=== PATIENT | female | born 1990 | race Two or more races ===

== ENCOUNTER 2021-10-18 14:38 | Emergency (ER) | payer MEDICAID, OTHER ==
[~2021-10-18] VITALS: Ht 154.9 cm; Wt 61.2 kg
[2021-10-18 16:21] VITALS: BP 119/60
[2021-10-18] MEDS ORDERED: PENICILLIN G BENZ 1200000 UNITS/2 ML SYRG IM ONE (16:30)
[2021-10-18] MEDS ORDERED: cefTRIAXone SOD 500 MG VL IM ONE (16:30)
== END 2021-10-18 16:51 | disposition home or self-care (01) ==
LOC: ER 14:38
DX: O98.212 Gonorrhea complicating pregnancy, second trimester (principal); Z3A.16 16 weeks gestation of pregnancy; Z76.0 Encounter for issue of repeat prescription
CPT/HCPCS: 96372; 99283; J0696

== ENCOUNTER 2022-03-22 08:22 | Inpatient (IN) | payer MEDICAID ==
[~2022-03-22] VITALS: Ht 154.9 cm; Wt 70.3 kg
[2022-03-22 14:41] LABS: Basophils # (auto) 0 10 ^3/uL (0-0.2); Basophils % (auto) 0.3 % (0.0-2.0); Eosinophils # (auto) 0 10 ^3/uL (0-0.8); Eosinophils % (auto) 0.6 % (0.0-7.0); Hematocrit 33.8 % (36.0-46.0); Lymphocytes # (auto) 1.6 10 ^3/uL (0.4-5.4); Mean Corpuscular Hemoglobin 27.5 pg (28.0-32.0); Mean Corpuscular Hgb Conc. 32.4 g/dL (32.0-36.0); Mean Corpuscular Volume 84.7 fL (80.0-100.0); Monocytes # (auto) 0.5 10 ^3/uL (0-1.3); Neutrophils # (auto) 6.3 10 ^3/uL (1.6-8.6); Neutrophils % (auto) 74.1 % (37.0-80.0); Red Blood Cells 3.99 10^6/uL (4.0-5.20); Red Cell Distribution Width 14.4 % (11.8-14.3); White Blood Cell 8.5 10^3/uL (4.4-10.8)
[2022-03-22 14:44] LABS: Albumin 2.5 g/dL (3.4-5.0); Calcium 8.5 mg/dL (8.5-10.1); Potassium 3.8 mmol/L (3.5-5.1)
[2022-03-22 14:52] LABS: BUN/Creatinine Ratio 19.5; Bilirubin, Total 0.6 mg/dL (0.2-1.0); Total Protein 6.8 g/dL (6.4-8.2)
[2022-03-22 14:56] LABS: Urine Bacteria NONE SEEN /hpf (None Seen); Urine Blood Negative /uL (Negative); Urine Specific Gravity 1.016 (1.001-1.035); Urine WBC 42 /hpf (0 - 5)
[2022-03-22 15:04] LABS: INR 0.91 (0.9-1.15); Partial Thromboplastin Time 31.3 sec (24.6-33.4)
[2022-03-23] VITALS (16 sets, daily range): BP systolic 90–115; BP diastolic 52–76
[2022-03-23] MEDS ORDERED: SODIUM CHLORIDE 0.9% 1,000 ML IV ONE ×2 (05:15)
[2022-03-23] MEDS ORDERED: CLINDAMYCIN 900MG IV 50 ML IV ONE (05:15)
[2022-03-23] MEDS ORDERED: PREN-129 OR (05:55)
[2022-03-23 06:33] LABS: Alcohol, Urine < 3.0 mg/dL (0-10); Amphetamine Screen, Urine NEGATIVE (NEGATIVE); Barbiturate Scree,Urine NEGATIVE (NEGATIVE); Benzodiazephine Screen, Urine NEGATIVE (NEGATIVE); Cannabinoid Screen, Urine NEGATIVE (NEGATIVE); Cocaine Screen, Urine NEGATIVE (NEGATIVE); Opiate Scree,Urine NEGATIVE (NEGATIVE); Phencyclidine Screen, Urine NEGATIVE (NEGATIVE)
[2022-03-23] MEDS ORDERED: fentaNYL CITRATE 100 MCG/2 ML VL ONE (06:56)
[2022-03-23] MEDS ORDERED: MORPHINE SULF PF 5 MG/10 ML VIAL ONE (06:56)
[2022-03-23] MEDS ORDERED: oxyTOCIN 10 UNIT/ML 10ML VIAL ONE (07:00)
[2022-03-23] MEDS ORDERED: ONDANSETRON HCL 4 MG/2 ML VIAL ONE (07:01)
[2022-03-23] MEDS ORDERED: KETOROLAC TROMETH 30 MG/ML 1ML VIAL ONE (07:01)
[2022-03-23] MEDS ORDERED: METOCLOPRAMIDE HCL 5MG/ml INJ 2ml VIAL ONE (07:01)
[2022-03-23] MEDS ORDERED: LACT. RINGERS/OXYTOCIN 20UNITS 1,000 ML IV ONE (08:30)
[2022-03-23] MEDS ORDERED: ONDANSETRON HCL 4 MG/2 ML VIAL IV PRN ×2 (08:30→10:00)
[2022-03-23] MEDS: SODIUM CHLORIDE 0.9% 1,000 ML IV SCH ×2 (10:00→16:47)
[2022-03-23] MEDS: CLINDAMYCIN 600MG IV 50 ML IV SCH ×2 (15:23→22:33)
[2022-03-23] MEDS: ACETAMINOPHEN IV 1000 MG/100ML (10MG/ML) IV PRN (16:47)
[2022-03-23 22:27] LABS: Basophils # (auto) 0 10 ^3/uL (0-0.2); Basophils % (auto) 0.3 % (0.0-2.0); Eosinophils # (auto) 0 10 ^3/uL (0-0.8); Eosinophils % (auto) 0.3 % (0.0-7.0); Hematocrit 32.4 % (36.0-46.0); Hemoglobin 10.3 g/dL (12.2-16.2); Lymphocytes # (auto) 1.2 10 ^3/uL (0.4-5.4); Lymphocytes % (auto) 11.1 % (10.0-50.0); Mean Corpuscular Hgb Conc. 31.9 g/dL (32.0-36.0); Mean Corpuscular Volume 84.7 fL (80.0-100.0); Monocytes # (auto) 0.6 10 ^3/uL (0-1.3); Monocytes % (auto) 5.7 % (0.0-12.0); Neutrophils # (auto) 9.3 10 ^3/uL (1.6-8.6); Neutrophils % (auto) 82.6 % (37.0-80.0); Red Blood Cells 3.82 10^6/uL (4.0-5.20); Red Cell Distribution Width 14.5 % (11.8-14.3); White Blood Cell 11.2 10^3/uL (4.4-10.8)
[2022-03-24] VITALS (11 sets, daily range): BP systolic 72–147; BP diastolic 35–94
[2022-03-24] MEDS: ACETAMINOPHEN IV 1000 MG/100ML (10MG/ML) IV PRN (00:31)
[2022-03-24] MEDS ORDERED: LACTATED RINGER'S 1,000 ML IV SCH (03:30)
[2022-03-24 06:15] LABS: Basophils # (auto) 0.1 10 ^3/uL (0-0.2); Basophils % (auto) 0.5 % (0.0-2.0); Eosinophils # (auto) 0.1 10 ^3/uL (0-0.8); Eosinophils % (auto) 0.7 % (0.0-7.0); Hematocrit 30.5 % (36.0-46.0); Hemoglobin 9.9 g/dL (12.2-16.2); Lymphocytes # (auto) 1.2 10 ^3/uL (0.4-5.4); Lymphocytes % (auto) 10.8 % (10.0-50.0); Mean Corpuscular Hemoglobin 28.9 pg (28.0-32.0); Mean Corpuscular Hgb Conc. 32.5 g/dL (32.0-36.0); Monocytes # (auto) 0.6 10 ^3/uL (0-1.3); Monocytes % (auto) 5.8 % (0.0-12.0); Neutrophils # (auto) 9.1 10 ^3/uL (1.6-8.6); Neutrophils % (auto) 82.2 % (37.0-80.0); Red Blood Cells 3.43 10^6/uL (4.0-5.20); Red Cell Distribution Width 14.5 % (11.8-14.3); White Blood Cell 11.1 10^3/uL (4.4-10.8)
[2022-03-24] MEDS ORDERED: BISACODYL 10 MG RECT SUPP PR PRN (07:45)
[2022-03-24] MEDS ORDERED: HYDROcodone-ACET 5/325MG TAB PO PRN (07:45)
[2022-03-24] MEDS: CLINDAMYCIN 600MG IV 50 ML IV SCH (07:46)
[2022-03-24] MEDS: HYDROcodone-ACET 5/325MG TAB PO PRN ×3 (08:13→22:19)
[2022-03-24] MEDS ORDERED: HYDR-4902 PO (08:23)
[2022-03-24] MEDS ORDERED: DOCU-94 PO (08:23)
[2022-03-24] MEDS ORDERED: IBUP800T27 PO (08:23)
[2022-03-24] MEDS: DOCUSATE SOD 100 MG CAP PO SCH ×2 (10:00→22:18)
[2022-03-24] MEDS: SIMETHICONE 80 MG CHEWABLE TABLET PO SCH ×3 (12:00→22:18)
[2022-03-24] MEDS: IBUPROFEN 800 MG TAB PO PRN (15:42)
[2022-03-25 03:30] VITALS: BP 106/72
[2022-03-25] MEDS: HYDROcodone-ACET 5/325MG TAB PO PRN ×2 (05:41→18:53)
[2022-03-25] MEDS: SIMETHICONE 80 MG CHEWABLE TABLET PO SCH ×4 (05:41→22:00)
[2022-03-25] MEDS ORDERED: MEASLES, MUMPS & RUBELLA VAC(MMRII) 0.5ML SC ONE (06:15)
[2022-03-25] MEDS ORDERED: TETANUS-DIPTH-ACEL PERTUSSIS 0.5ML SYR Tdap IM ONE (06:15)
[2022-03-25 07:12] VITALS: BP 117/64
[2022-03-25] MEDS: DOCUSATE SOD 100 MG CAP PO SCH ×2 (09:48→22:00)
[2022-03-25] MEDS: IBUPROFEN 800 MG TAB PO PRN (09:53)
[2022-03-25 11:00] VITALS: BP 125/67
[2022-03-25 15:00] VITALS: BP 136/83
[2022-03-25] MEDS ORDERED: PHENYLEPHRINE HCL 10 MG/ML VL IV ONE (15:17)
[2022-03-25] MEDS ORDERED: ePHEDrine SULFATE 50 MG/ML AMP IV ONE (15:17)
[2022-03-25 19:00] VITALS: BP 113/74
[2022-03-25 23:00] VITALS: BP 135/89
[2022-03-26 03:00] VITALS: BP 109/67
[2022-03-26] MEDS: IBUPROFEN 800 MG TAB PO PRN ×2 (04:22→12:24)
[2022-03-26] MEDS: SIMETHICONE 80 MG CHEWABLE TABLET PO SCH ×2 (06:05→12:24)
[2022-03-26 07:20] VITALS: BP 121/73
[2022-03-26] MEDS: DOCUSATE SOD 100 MG CAP PO SCH (10:23)
[2022-03-26 11:00] VITALS: BP 125/78
[2022-03-26] MEDS ORDERED: TETANUS-DIPTH-ACEL PERTUSSIS 0.5ML SYR Tdap IM ONE (14:45)
[2022-03-26] MEDS ORDERED: MEASLES, MUMPS & RUBELLA VAC(MMRII) 0.5ML SC ONE (14:45)
[2022-03-26 15:00] VITALS: BP 127/87
== END 2022-03-26 16:05 | disposition home or self-care (01) | DRG 540 ==
LOC: LDRP 03-23 05:00 → PREOBSVTOIN 03-23 05:03 → LDRP 03-23 15:53
PROVIDERS: ADMIT Obstetrics & Gynecology; ATTEND Obstetrics & Gynecology
PROC: 10D00Z1 Extraction of Products of Conception, Low, Open Approach (ICD-10-PCS; principal; 2022-03-23 07:00)
DX: O34.211 Maternal care for low transverse scar from previous cesarean delivery (principal); Z20.822 Contact with and (suspected) exposure to COVID-19; Z37.0 Single live birth; Z3A.39 39 weeks gestation of pregnancy
CPT/HCPCS: 36415; 59025; 80053; 80307; 81001; 81002; 85025; 85610; 85730; 86850; 86900; 86901; 90715; 94760; 94762; 96360; 96361; 96365; 96366; G0378; J0131; J1885; J2405; J2590; J3490

== ENCOUNTER 2023-11-17 17:10 | Emergency (ER) | payer MEDICAID ==
[~2023-11-17] VITALS: Ht 152.4 cm; Wt 54.5 kg
[~2023-11-17 17:10] MED LIST: DOCU-94 PO; HYDR-4902 PO; IBUP-1456 PO; PREN-129 OR
[2023-11-17 17:20] VITALS: BP 123/86; PULSE 96; RESP 16; O2SAT 98
== END 2023-11-17 20:00 | disposition left against medical advice (07) ==
LOC: EDBD 17:10 → ER 17:10 → EDUNIT# 17:10 → ER 20:00
DX: S01.111A Laceration without foreign body of right eyelid and periocular area, initial encounter (principal); Z53.21 Procedure and treatment not carried out due to patient leaving prior to being seen by health care provider; Y00.XXXA Assault by blunt object, initial encounter; Y93.89 Activity, other specified; Y92.89 Other specified places as the place of occurrence of the external cause; Y99.8 Other external cause status

== ENCOUNTER → 2024-05-27 | Outpatient (CLI) | payer MEDICAID ==
[2024-05-27 13:09] LABS: Basophils # (auto) 0 10 ^3/uL (0-0.2); Basophils % (auto) 0.4 % (0.0-2.0); Eosinophils # (auto) 0.2 10 ^3/uL (0-0.8); Eosinophils % (auto) 1.7 % (0.0-7.0); Hematocrit 34.7 % (36.0-46.0); Hemoglobin 11.7 g/dL (12.2-16.2); Lymphocytes # (auto) 1.6 10 ^3/uL (0.4-5.4); Mean Corpuscular Hemoglobin 30.1 pg (28.0-32.0); Mean Corpuscular Hgb Conc. 33.6 g/dL (32.0-36.0); Mean Corpuscular Volume 89.5 fL (80.0-100.0); Monocytes # (auto) 0.6 10 ^3/uL (0-1.3); Monocytes % (auto) 6.7 % (0.0-12.0); Neutrophils # (auto) 6.5 10 ^3/uL (1.6-8.6); Neutrophils % (auto) 73.2 % (37.0-80.0); Platelet Count (auto) 235 10^3/uL (140-450); Red Blood Cells 3.88 10^6/uL (4.0-5.20); Red Cell Distribution Width 14.3 % (11.8-14.3); White Blood Cell 8.9 10^3/uL (4.4-10.8)
[2024-05-27 13:42] LABS: Amphetamine Screen, Urine Neg (NEGATIVE); Barbiturate Scree,Urine Neg (NEGATIVE); Benzodiazephine Screen, Urine Neg (NEGATIVE)
[2024-05-27 13:43] LABS: Cannabinoid Screen, Urine Pos (NEGATIVE); Cocaine Screen, Urine Neg (NEGATIVE); Opiate Scree,Urine Neg (NEGATIVE); Phencyclidine Screen, Urine Neg (NEGATIVE)
[2024-05-27 13:46] LABS: Albumin 3.8 g/dL (3.2-4.8); Alkaline Phosphatase 82 U/L (46-116); Anion Gap 6 (5-15); Aspartate Aminotransferase 13 U/L (13-40); Carbon Dioxide 24 mmol/L (20-31); Chloride 107 mmol/L (98-107); Cholesterol 273 mg/dL (< 200); Glucose 90 mg/dL (74-106); LDL Cholesterol 170 mg/dL (< 100); Sodium 137 mmol/L (136-145); Triglycerides 275 mg/dL (< 150)
[2024-05-27 13:47] LABS: BUN/Creatinine Ratio 12.2 (10.0-20.0); Bilirubin, Total 0.4 mg/dL (0.2-1.0); Blood Urea Nitrogen 6 mg/dL (9-23); HDL Cholesterol 87 mg/dL (40-59); Total Protein 6.6 g/dL (5.7-8.2)
[2024-05-27 13:52] LABS: Thyroid Stimulating Hormone 1.9 uIU/mL (0.55-4.78)
[2024-05-27 14:00] LABS: Beta HCG, Quantitative 7574.6 mIU/mL (1.5-4.2)
[2024-05-27 14:14] LABS: Alanine Aminotransferase < 9 U/L (7-40)
[2024-05-28 07:07] LABS: Varicella Zoster IgG Antibody Reactive (Non Reactive)
[2024-05-28 08:06] LABS: RPR Non Reactive (Non Reactive)
== END | disposition home or self-care (01) ==
LOC: LAB 12:17
PROVIDERS: ATTEND Obstetrics & Gynecology
DX: Z31.430 Encounter of female for testing for genetic disease carrier status for procreative management (principal); N39.0 Urinary tract infection, site not specified; Z36.0 Encounter for antenatal screening for chromosomal anomalies; Z34.80 Encounter for supervision of other normal pregnancy, unspecified trimester
CPT/HCPCS: 36415; 80053; 80061; 80307; 83036; 84439; 84443; 84702; 85025; 86592; 86703; 86706; 86765; 86787; 86850; 86900; 86901; 87902